=== PATIENT | female | born 1950 | race Native Hawaiian/Other Pacific Islander ===

== ENCOUNTER 2020-01-11 04:19 | Emergency (ER) | payer OTHER ==
[~2020-01-11] VITALS: Ht 152.4 cm; Wt 68.0 kg
[2020-01-11 04:21] VITALS: BP 140/80; TEMP 97.7
[2020-01-11] MEDS ORDERED: ABILIFY2 MG PO (04:39)
[2020-01-11] MEDS ORDERED: LIPITOR40 MG PO (04:40)
[2020-01-11] MEDS ORDERED: CELEXA40 MG PO (04:41)
[2020-01-11] MEDS ORDERED: DOCU100C10 PO (04:42)
[2020-01-11] MEDS ORDERED: FERROUS SULF325 M1 PO (04:42)
[2020-01-11] MEDS ORDERED: GABA300C2 PO (04:42)
[2020-01-11] MEDS ORDERED: BUSP5TAB2 PO (04:49)
[2020-01-11] MEDS ORDERED: HYDROXYZINE HYD50 MG PO (04:50)
[2020-01-11] MEDS ORDERED: INSUINJP SC (04:51)
[2020-01-11] MEDS ORDERED: LEVO0.0723 PO (04:52)
[2020-01-11] MEDS ORDERED: MAG OXIDE400 MG PO (04:52)
[2020-01-11] MEDS ORDERED: MELATONIN5 MG PO (04:53)
[2020-01-11] MEDS ORDERED: METFORMIN HYD1000 MG PO (04:53)
[2020-01-11] MEDS ORDERED: NEXIUM40 M1 PO (04:54)
[2020-01-11] MEDS ORDERED: PRAMIPEXOLE1 MG PO (04:54)
[2020-01-11] MEDS ORDERED: SENNA8.6 MG PO (04:55)
[2020-01-11] MEDS ORDERED: ZOCOR80 MG PO (04:56)
[2020-01-11] MEDS ORDERED: TIZANIDINE HYDRO4 MG PO (04:57)
[2020-01-11] MEDS ORDERED: SOLI10TAB PO (04:57)
[2020-01-11 05:11] LABS: PLATELET COUNT 352 K/uL (152-353)
[2020-01-11 05:15] LABS: POTASSIUM 4.1 mmol/L (3.6-5.2)
== END 2020-01-11 06:42 | disposition other institution (70) ==
LOC: ED 04:19
PROVIDERS: Family Medicine
DX: F31.89 Other bipolar disorder (principal); R46.89 Other symptoms and signs involving appearance and behavior; Z04.6 Encounter for general psychiatric examination, requested by authority
CPT/HCPCS: 80053; 81000; 85027; 93005; 99283; 99285